=== PATIENT | female | born 1945 | race Caucasian/White ===

== ENCOUNTER 2017-11-25 08:22 | Inpatient (IN) | payer OTHER ==
[2017-11-25] MEDS: LORAZEPAM 2 MG INJ IV ×5 (08:52→23:35)
[2017-11-25] MEDS: SODIUM CHLORIDE 0.9% 1L BAG IV* (08:53)
[2017-11-25] MEDS ORDERED: NORepinephrine 8MG/250 ML (PMX 250 ML (09:40)
[2017-11-25] MEDS: NORepinephrine 8MG/250 ML (PMX 250 ML IV (09:50)
[2017-11-25 09:54] LABS: ADD MAN DIFF? NO
[2017-11-25 10:00] LABS: BASOPHIL # 0.1 10^3/ul (0.0-0.1); BASOPHILS % 0.9 % (0.0-2.0); EOSINOPHILS # 0.1 10^3/ul (0.0-0.5); EOSINOPHILS % 1.6 % (0.0-7.0); HEMATOCRIT 34.1 % (37.0-47.0); HEMOGLOBIN 10.7 g/dl (12.0-16.0); LYMPHOCYTES # 0.9 10^3/ul (0.8-2.9); MEAN CORPUSCULAR HEMOGLOBIN 31.8 pg (29.0-33.0); MEAN CORPUSCULAR HGB CONC 31.4 g/dl (32.0-37.0); MEAN CORPUSCULAR VOLUME 101.5 fl (82.0-101.0); MEAN PLATELET VOLUME 12.1 fl (7.4-10.4); MONOCYTE # 0.7 10^3/ul (0.3-0.9); MONOCYTES % 8.4 % (0.0-11.0); NEUTROPHIL # 6.8 10^3/ul (1.6-7.5); NEUTROPHILS % 78.5 % (39.0-77.0); PLATELET COUNT 331 10^3/UL (140-415); RED BLOOD COUNT 3.36 10^6/ul (4.20-5.40); RED CELL DISTRIBUTION WIDTH 14.6 % (11.5-14.5)
[2017-11-25 10:00] LABS: WHITE BLOOD COUNT 8.6 10^3/ul (4.8-10.8)
[2017-11-25 10:24] LABS: INR 1.05; PROTIME 13.8 Sec (11.9-14.9); PT RATIO 1.1
[2017-11-25 10:25] LABS: PARTIAL THROMBOPLASTIN TIME 26.5 Sec (25.0-35.0)
[2017-11-25 10:27] LABS: AADO2 Arterial 367.4 mmHg (7.0-24.0); Allen Test ACCEPTAB; Arterial Base Excess -5.5 mmol/L (-3.0-3); Arterial Blood Gas Oxygen Sat 99.4 mmHG (95.0-100.0); Arterial COHb 0.3 % (0.0-3.0); Arterial Fraction of Oxyhgb 98.8 % (93.0-99.0); Arterial HCO3 20.6 mmol/L (22.0-26.0); Arterial MetHb 0.3 % (0.0-1.5); Arterial Total Hemglobin 11.8 g/dl (12.0-18.0); Arterial pCO2 42.6 mmhg (35-45); MODE MASK - NRB; Site Left Radial
[2017-11-25 10:30] LABS: LACTIC ACID 5.6 mmol/L (0.5-2.0)
[2017-11-25 10:46] LABS: ALANINE AMINOTRANSFERASE 12 IU/L (13-69); ALBUMIN 3.6 g/dl (3.3-4.9); ALBUMIN/GLOBULIN RATIO 1.05; ALKALINE PHOSPHATASE 69 IU/L (42-121); AMYLASE 42 U/L (11-123); ANION GAP 16 (8-16); ASPARTATE AMINO TRANSFERASE 36 IU/L (15-46); BILIRUBIN,INDIRECT 0.3 mg/dl (0-1.1); BILIRUBIN,TOTAL 0.3 mg/dl (0.2-1.3); BLOOD UREA NITROGEN 38 mg/dl (7-20); CALCIUM 9.2 mg/dl (8.4-10.2); CARBON DIOXIDE 22 mmol/L (21-31); CHLORIDE 109 mmol/L (97-110); GLUCOSE 73 mg/dl (70-220); LIPASE 71 U/L (23-300); POTASSIUM 3.4 mmol/L (3.5-5.1); SODIUM 144 mmol/L (135-144)
[2017-11-25 10:57] LABS: TROPONIN-I 0.017 ng/ml (0.000-0.120)
[2017-11-25] MEDS: LEVOFLOXACIN 750MG/D5W (PMX) 150 ML IVPB (11:10)
[2017-11-25 11:20] LABS: ADD UMIC YES; UR ASCORBIC ACID NEGATIVE (NEGATIVE); UR BACTERIA FEW /HPF (NONE SEEN); UR BILIRUBIN (Dip) NEGATIVE (NEGATIVE); UR BLOOD (Dip) 1+ mg/dL (NEGATIVE); UR CLARITY SLIGHTLY CLOUDY (CLEAR); UR COLOR YELLOW (YELLOW); UR GLUCOSE (Dip) 1+ mg/dL (NEGATIVE); UR KETONES (Dip) TRACE mg/dL (NEGATIVE); UR LEUKOCYTE ESTERASE (Dip) NEGATIVE Leu/ul (NEGATIVE); UR MUCUS MODERATE /HPF (NONE SEEN); UR NITRITE (Dip) NEGATIVE (NEGATIVE); UR RBC 5 /HPF (0-5); UR SPECIFIC GRAVITY (Dip) 1.009 (1.003-1.030); UR SQUAMOUS EPITHELIAL CELL FEW /HPF (FEW); UR TOTAL PROTEIN (Dip) 2+ mg/dl (NEGATIVE); UR UROBILINOGEN (Dip) NEGATIVE (NEGATIVE); UR WBC 3 /HPF (0-5)
[2017-11-25] MEDS: VANCOMYCIN 1 GM (PMX) 250 ML IVPB (12:25)
[2017-11-25 12:33] LABS: LACTIC ACID 0.8 mmol/L (0.5-2.0)
[2017-11-25] MEDS ORDERED: VANCOMYCIN IV PER PHARMACY XX (14:00)
[2017-11-25 14:47] LABS: LACTIC ACID 0.5 mmol/L (0.5-2.0)
[2017-11-25] MEDS ORDERED: ALBUTEROL 0.083% (NEB) 2.5 MG/3 ML AMP NEB (16:00)
[2017-11-25] MEDS ORDERED: NACL 0.9% 3 ML SYG IV (16:00)
[2017-11-25] MEDS: PIPER-TAZO 3.375 GM IV (PMX) 100 ML IVPB ×2 (16:09→22:23)
[2017-11-25] MEDS: CARBIDOPA/LEVODOPA (25/100) TAB PO ×2 (16:36→22:08)
[2017-11-25] MEDS ORDERED: CARBIDOPA/LEVODOPA (25/100) TAB PO (17:00)
[2017-11-25] MEDS ORDERED: PIPER-TAZO 3.375 GM IV (PMX) 100 ML IVPB (18:00)
[2017-11-25] MEDS: SOD CHLORIDE 0.9% 1,000 ML IV (19:42)
[2017-11-25] MEDS ORDERED: CLOTRIMAZOLE 1% TOP (21:00)
[2017-11-25] MEDS: CLOTRIMAZOLE 1% 30 ML TOPICAL SOLN TOP (21:00)
[2017-11-25] MEDS: BENZTROPINE 1 MG TAB GTB (21:37)
[2017-11-25] MEDS: TRIHEXYPHENIDYL 2 MG TAB GTB (21:37)
[2017-11-25] MEDS: PRAMIPEXOLE 1 MG TAB GTB (21:38)
[2017-11-25] MEDS: SENNA TAB GTB (21:39)
[2017-11-25] MEDS: FAMOTIDINE 20 MG TAB GTB (21:40)
[2017-11-25] MEDS: hydrALAzine 20 MG INJ IV (23:59)
[2017-11-26] MEDS: VANCOMYCIN 750 MG in SOD CHLORIDE 0.9% 150 ML IVPB ×2 (00:12→11:35)
[2017-11-26] MEDS: NORepinephrine 8MG/250 ML (PMX 250 ML IV (03:36)
[2017-11-26] MEDS: SOD CHLORIDE 0.9% 500 ML IV (03:37)
[2017-11-26 05:57] LABS: ADD MAN DIFF? NO
[2017-11-26 06:03] LABS: ABNORMAL IP MESSAGE 1; BASOPHIL # 0.1 10^3/ul (0.0-0.1); BASOPHILS % 0.9 % (0.0-2.0); EOSINOPHILS # 0.3 10^3/ul (0.0-0.5); EOSINOPHILS % 3.6 % (0.0-7.0); HEMATOCRIT 30.2 % (37.0-47.0); HEMOGLOBIN 9.7 g/dl (12.0-16.0); LYMPHOCYTES # 0.6 10^3/ul (0.8-2.9); LYMPHOCYTES % 5.9 % (15.0-51.0); MEAN CORPUSCULAR HEMOGLOBIN 32.6 pg (29.0-33.0); MEAN CORPUSCULAR HGB CONC 32.1 g/dl (32.0-37.0); MEAN CORPUSCULAR VOLUME 101.3 fl (82.0-101.0); MEAN PLATELET VOLUME 12.4 fl (7.4-10.4); MONOCYTE # 0.7 10^3/ul (0.3-0.9); NEUTROPHIL # 7.5 10^3/ul (1.6-7.5); NEUTROPHILS % 81.1 % (39.0-77.0); PLATELET COUNT 274 10^3/UL (140-415); RED BLOOD COUNT 2.98 10^6/ul (4.20-5.40); RED CELL DISTRIBUTION WIDTH 14.7 % (11.5-14.5)
[2017-11-26 06:03] LABS: WHITE BLOOD COUNT 9.3 10^3/ul (4.8-10.8)
[2017-11-26 06:06] LABS: POSITIVE DIFF @See below
[2017-11-26] MEDS: PIPER-TAZO 3.375 GM IV (PMX) 100 ML IVPB ×3 (06:41→22:45)
[2017-11-26 07:32] LABS: HEMOGLOBIN A1C 4.9 % (0-5.9)
[2017-11-26] MEDS: LEVOTHYROXINE 125 MCG TAB GTB (07:43)
[2017-11-26 07:58] LABS: ALANINE AMINOTRANSFERASE 22 IU/L (13-69); ALBUMIN 2.9 g/dl (3.3-4.9); ALBUMIN/GLOBULIN RATIO 0.93; ALKALINE PHOSPHATASE 56 IU/L (42-121); ANION GAP 14 (8-16); ASPARTATE AMINO TRANSFERASE 39 IU/L (15-46); BILIRUBIN,INDIRECT 0.3 mg/dl (0-1.1); BILIRUBIN,TOTAL 0.3 mg/dl (0.2-1.3); BLOOD UREA NITROGEN 32 mg/dl (7-20); CALCIUM 8.3 mg/dl (8.4-10.2); CARBON DIOXIDE 19 mmol/L (21-31); CHLORIDE 115 mmol/L (97-110); CREATININE 0.89 mg/dl (0.44-1.00); GLUCOSE 69 mg/dl (70-220); SODIUM 145 mmol/L (135-144)
[2017-11-26] MEDS: CLOTRIMAZOLE 1% 30 ML TOPICAL SOLN TOP ×2 (09:00→21:53)
[2017-11-26] MEDS: TRIHEXYPHENIDYL 2 MG TAB GTB ×2 (09:21→21:49)
[2017-11-26] MEDS: BENZTROPINE 1 MG TAB GTB ×2 (09:21→21:50)
[2017-11-26] MEDS: PRAMIPEXOLE 1 MG TAB GTB ×3 (09:21→21:52)
[2017-11-26] MEDS: POLYETHYLENE GLYCOL 17 GM PACKET PO (09:22)
[2017-11-26] MEDS: FAMOTIDINE 20 MG TAB GTB ×2 (09:22→21:59)
[2017-11-26] MEDS: CARBIDOPA/LEVODOPA (25/100) TAB PO ×4 (09:22→21:53)
[2017-11-26] MEDS: ENOXAPARIN 40 MG/0.4 ML SYG SC (09:25)
[2017-11-26] MEDS: POTASSIUM CHLORIDE 100 ML IVPB ×2 (09:31→11:14)
[2017-11-26] MEDS: LORAZEPAM 2 MG INJ IV (10:00)
[2017-11-26] MEDS: ASPIRIN 325 MG TAB GTB (15:29)
[2017-11-26] MEDS: QUETIAPINE 25 MG TAB GTB ×2 (15:29→21:51)
[2017-11-26] MEDS: SENNA TAB GTB (21:51)
[2017-11-26] MEDS: IOHEXOL 100 ML (22:19)
[2017-11-26] MEDS: SOD CHLORIDE 0.9% 100 ML (22:19)
[2017-11-26] MEDS: IOHEXOL 350MG/ML 50 ML BTL (22:20)
[2017-11-26 22:49] LABS: VANCOMYCIN,TROUGH 16.3 ug/ml (10.0-20.0)
[2017-11-27] MEDS: VANCOMYCIN 750 MG in SOD CHLORIDE 0.9% 150 ML IVPB
[2017-11-27] MEDS: LORAZEPAM 2 MG INJ IV ×2 (01:09→13:53)
[2017-11-27 06:02] LABS: ADD MAN DIFF? NO
[2017-11-27 06:12] LABS: WHITE BLOOD COUNT 7.3 10^3/ul (4.8-10.8)
[2017-11-27 06:12] LABS: BASOPHIL # 0.1 10^3/ul (0.0-0.1); EOSINOPHILS # 0.5 10^3/ul (0.0-0.5); HEMATOCRIT 29.7 % (37.0-47.0); HEMOGLOBIN 9.6 g/dl (12.0-16.0); LYMPHOCYTES # 0.7 10^3/ul (0.8-2.9); LYMPHOCYTES % 9.7 % (15.0-51.0); MEAN CORPUSCULAR HEMOGLOBIN 32.4 pg (29.0-33.0); MEAN CORPUSCULAR HGB CONC 32.3 g/dl (32.0-37.0); MEAN CORPUSCULAR VOLUME 100.3 fl (82.0-101.0); MEAN PLATELET VOLUME 11.9 fl (7.4-10.4); MONOCYTE # 0.8 10^3/ul (0.3-0.9); MONOCYTES % 10.5 % (0.0-11.0); NEUTROPHIL # 5.2 10^3/ul (1.6-7.5); NEUTROPHILS % 71.4 % (39.0-77.0); PLATELET COUNT 265 10^3/UL (140-415); RED BLOOD COUNT 2.96 10^6/ul (4.20-5.40); RED CELL DISTRIBUTION WIDTH 15.2 % (11.5-14.5)
[2017-11-27 06:44] LABS: ALANINE AMINOTRANSFERASE 17 IU/L (13-69); ALBUMIN 2.9 g/dl (3.3-4.9); ALKALINE PHOSPHATASE 65 IU/L (42-121); ANION GAP 10 (8-16); ASPARTATE AMINO TRANSFERASE 32 IU/L (15-46); BILIRUBIN,INDIRECT 0.1 mg/dl (0-1.1); BILIRUBIN,TOTAL 0.1 mg/dl (0.2-1.3); BLOOD UREA NITROGEN 26 mg/dl (7-20); CALCIUM 8.7 mg/dl (8.4-10.2); CARBON DIOXIDE 23 mmol/L (21-31); CHLORIDE 117 mmol/L (97-110); GLUCOSE 117 mg/dl (70-220); POTASSIUM 3.8 mmol/L (3.5-5.1); SODIUM 146 mmol/L (135-144); TOTAL PROTEIN 6.1 g/dl (6.1-8.1)
[2017-11-27] MEDS: PIPER-TAZO 3.375 GM IV (PMX) 100 ML IVPB ×2 (07:16→14:04)
[2017-11-27] MEDS: LEVOTHYROXINE 125 MCG TAB GTB (08:08)
[2017-11-27] MEDS: TRIHEXYPHENIDYL 2 MG TAB GTB ×4 (08:08→22:27)
[2017-11-27] MEDS: ASPIRIN 325 MG TAB GTB (08:09)
[2017-11-27] MEDS: BENZTROPINE 1 MG TAB GTB ×2 (08:09→20:37)
[2017-11-27] MEDS: PRAMIPEXOLE 1 MG TAB GTB ×3 (08:10→20:38)
[2017-11-27] MEDS: FAMOTIDINE 20 MG TAB GTB ×2 (08:11→20:38)
[2017-11-27] MEDS: QUETIAPINE 25 MG TAB GTB ×2 (08:11→20:38)
[2017-11-27] MEDS: POLYETHYLENE GLYCOL 17 GM PACKET PO (08:12)
[2017-11-27] MEDS: ENOXAPARIN 40 MG/0.4 ML SYG SC (08:13)
[2017-11-27] MEDS: CLOTRIMAZOLE 1% 30 ML TOPICAL SOLN TOP ×3 (08:13→21:00)
[2017-11-27] MEDS: CARBIDOPA/LEVODOPA (25/100) TAB PO ×4 (08:13→20:37)
[2017-11-27] MEDS: LORAZEPAM 1 MG TAB PO (18:25)
[2017-11-27] MEDS: SENNA TAB GTB (20:37)
[2017-11-28] MEDS: LEVOTHYROXINE 125 MCG TAB GTB (06:06)
[2017-11-28] MEDS: PRAMIPEXOLE 1 MG TAB GTB ×2 (09:16→12:24)
[2017-11-28] MEDS: POLYETHYLENE GLYCOL 17 GM PACKET PO (09:16)
[2017-11-28] MEDS: ASPIRIN 325 MG TAB GTB (09:16)
[2017-11-28] MEDS: FAMOTIDINE 20 MG TAB GTB (09:17)
[2017-11-28] MEDS: ENOXAPARIN 40 MG/0.4 ML SYG SC (09:17)
[2017-11-28] MEDS: CARBIDOPA/LEVODOPA (25/100) TAB PO ×2 (09:17→12:24)
[2017-11-28] MEDS: TRIHEXYPHENIDYL 2 MG TAB GTB (09:18)
[2017-11-28] MEDS: QUETIAPINE 25 MG TAB GTB (09:18)
[2017-11-28] MEDS: CLOTRIMAZOLE 1% 30 ML TOPICAL SOLN TOP (09:19)
[2017-11-28] MEDS: BENZTROPINE 1 MG TAB GTB (09:19)
== END 2017-11-28 17:10 | DRG 871 ==
LOC: E/R 08:22 → MS4 12:16
PROVIDERS: Internal Medicine
DX: A41.9 Sepsis, unspecified organism (principal); R65.21 Severe sepsis with septic shock; G93.40 Encephalopathy, unspecified; J96.01 Acute respiratory failure with hypoxia; G82.50 Quadriplegia, unspecified; F20.0 Paranoid schizophrenia; G20 Parkinson's disease; F02.80 Dementia in other diseases classified elsewhere, unspecified severity, without behavioral disturbance, psychotic disturbance, mood disturbance, and anxiety; E03.9 Hypothyroidism, unspecified; Z79.82 Long term (current) use of aspirin
CPT/HCPCS: 36600; 70450; 70551; 71045; 71275; 76937; 80053; 80202; 81001; 82150; 82607; 82803; 82962; 83036; 83605; 83690; 84484; 85025; 85610; 85730; 86850; 86900; 86901; 87040; 87081; 87086; 93005; 93306; 96365; 96366; 96375; 97162; 99291-25